=== PATIENT | female | born 1995 | race Caucasian/White ===

== ENCOUNTER 2017-06-01 22:46 | Emergency (ER) | payer SELFPAY ==
[~2017-06-01] VITALS: Ht 170.2 cm; Wt 64.0 kg
[2017-06-01] MEDS ORDERED: SODIUM CHLORIDE 0.9% 1,000 ML IV ONE (23:02)
[2017-06-01 23:26] LABS: BASOPHILS % 0.6 % (0.0-2.0); EOSINOPHILS % 2.4 % (0.0-5.0); HEMATOCRIT. 41.9 % (36.0-48.0); HEMOGLOBIN. 14.2 g/dL (12.0-16.0); LYMPHOCYTES % 26.6 % (20.0-50.0); MEAN CORPUSCULAR HEMOGLOBIN 27.4 pg (28.0-32.0); MEAN CORPUSCULAR VOLUME 80.7 fL (81.0-99.0); MEAN PLATELET VOLUME 7.5 fl (7.4-10.4); MONOCYTES % 8.7 % (2.0-8.0); NEUTROPHILS % 61.7 % (40.0-76.0); PLATELET 300 x1000/uL (130-400); RED BLOOD CELL COUNT 5.19 mill/uL (4.2-5.4); RED CELL DISTRIBUTION WIDTH 13.6 % (11.6-14.6)
[2017-06-01 23:42] LABS: CHLORIDE 110 mEq/L (98-107)
[2017-06-01 23:48] LABS: HCG SCREEN NEGATIVE
[2017-06-01 23:51] LABS: CARBON DIOXIDE 22 mEq/L (21-32); ETHANOL BLOOD 148 mg/dL
[2017-06-02 04:06] VITALS: BP 110/70
== END 2017-06-02 04:08 | disposition home or self-care (01) ==
LOC: ER 22:57
DX: S09.8XXA Other specified injuries of head, initial encounter (principal); F10.129 Alcohol abuse with intoxication, unspecified; Y90.6 Blood alcohol level of 120-199 mg/100 ml; S16.1XXA Strain of muscle, fascia and tendon at neck level, initial encounter; R00.0 Tachycardia, unspecified; X58.XXXA Exposure to other specified factors, initial encounter; Y93.89 Activity, other specified; Y92.89 Other specified places as the place of occurrence of the external cause; F17.210 Nicotine dependence, cigarettes, uncomplicated
CPT/HCPCS: 36415; 70450; 71010; 72125; 80053; 80307; 80329; 82962; 84703; 85025; 93005; 99285; G0482; Z7610; J7030

== ENCOUNTER 2017-09-20 21:41 | Emergency (ER) | payer SELFPAY ==
[~2017-09-20] VITALS: Ht 170.2 cm; Wt 60.0 kg
[2017-09-21] MEDS ORDERED: SODIUM CHLORIDE 0.9% 1,000 ML IV ONE (02:00)
[2017-09-21] MEDS ORDERED: KETOROLAC 30MG/ML VIAL IV ONE (02:00)
[2017-09-21] MEDS ORDERED: DIPHENHYDRAMINE 50MG/ML VIAL IV ONE (02:00)
[2017-09-21] MEDS ORDERED: METOCLOPRAMIDE HCL 10MG/2ML VIAL IV ONE (02:00)
[2017-09-21 02:44] LABS: CLARITY URINE CLEAR (CLEAR); COLOR URINE YELLOW (YELLOW); GLUCOSE URINE NEGATIVE (NEGATIVE); KETONES URINE 1+ (NEGATIVE); LEUKOCYTE ESTERASE URINE NEGATIVE (NEGATIVE); NITRITE URINE NEGATIVE (NEGATIVE); OCCULT BLOOD URINE 2+ (NEGATIVE); PROTEIN URINE NEGATIVE (NEGATIVE); SPECIFIC GRAVITY URINE 1.027 (1.005-1.030); UROBILINOGEN URINE 0.2 E.U./dL (0.2-1.0)
[2017-09-21 03:30] VITALS: BP 115/75
== END 2017-09-21 03:54 | disposition home or self-care (01) ==
LOC: ER 21:41
DX: G43.909 Migraine, unspecified, not intractable, without status migrainosus (principal); R11.2 Nausea with vomiting, unspecified
CPT/HCPCS: 81001; 81025; 96361; 96374; 96375; 99284; J1200; J1885; J2765; J7030; Z7610

== ENCOUNTER 2019-08-11 01:25 | Emergency (ER) | payer BC ==
[~2019-08-11] VITALS: Ht 167.6 cm; Wt 73.0 kg
[2019-08-11] MEDS ORDERED: MORPHINE SULFATE 4 MG/ML CPJ (NOT FOR IM USE) IV STA (02:12)
[2019-08-11] MEDS ORDERED: METOCLOPRAMIDE HCL 10MG/2ML VIAL IV STA (02:12)
[2019-08-11] MEDS ORDERED: SODIUM CHLORIDE 0.9% 1,000 ML IV ONE (02:12)
[2019-08-11] MEDS ORDERED: LORAZEPAM 2MG/ML CPJ IV ONE (02:15)
[2019-08-11 02:34] LABS: BASOPHILS % 0.1 % (0.0-2.0); HEMATOCRIT. 34.8 % (36.0-48.0); LYMPHOCYTES % 13.8 % (20.0-50.0); MEAN CORPUSCULAR HEMOGLOBIN 21.3 pg (28.0-32.0); MEAN CORPUSCULAR VOLUME 67.2 fL (81.0-99.0); MONOCYTES % 7.3 % (2.0-8.0); NEUTROPHILS % 78.8 % (40.0-76.0); PLATELET 346 x1000/uL (130-400); RED BLOOD CELL COUNT 5.17 mill/uL (4.2-5.4); RED CELL DISTRIBUTION WIDTH 21.1 % (11.6-14.6)
[2019-08-11 02:38] LABS: CHLORIDE 104 mEq/L (98-107)
[2019-08-11 04:15] LABS: PLATELET ESTIMATE NORMAL
[2019-08-11 06:50] VITALS: BP 117/65
== END 2019-08-11 07:09 | disposition home or self-care (01) ==
LOC: ER 01:25
DX: G89.18 Other acute postprocedural pain (principal); R10.11 Right upper quadrant pain; R11.10 Vomiting, unspecified; R00.0 Tachycardia, unspecified; Z90.49 Acquired absence of other specified parts of digestive tract
CPT/HCPCS: 36415; 80053; 83690; 85025; 96361; 96374; 96375; 99283; J2060; J2270; J2765; J7030